=== PATIENT | female | born 1985 | race American Indian/Alaskan Native ===

== ENCOUNTER 2021-04-03 17:12 | Emergency (ER) | payer MEDICAID ==
[2021-04-03] MEDS ORDERED: ONDANSETRON 4 MG/2 ML INJ IV ONE (18:03)
[2021-04-03] MEDS ORDERED: MORPHINE 4 MG/1 ML INJ IV ONE (18:03)
[2021-04-03] MEDS ORDERED: KETOROLAC 30 MG/1 ML INJ IV ONE (18:03)
[2021-04-03] MEDS ORDERED: SODIUM CHLORIDE 0.9% 1000 ML 1,000 ML IV ONE (18:06)
--- NOTE | 2021-04-03 18:10 | Emergency Department Report ---
ED Abdominal Pain HPI - General Chief Complaint: Abdominal Pain Stated Complaint: RT SIDE PAIN PUI?: No Time Seen by Provider: 04/03/21 17:53 Source: patient Mode of arrival: Wheelchair Limitations: No Limitations - History of Present Illness Initial Comments: CC: "I hurt on my right side." HPI: This is a 35-year-old female with history of kidney stones who presents with right flank pain which began on yesterday shortly after eating Khmer food. Sharp 10 out of 10 pain. She had a brief evaluation at outside hospital last night. Due to prolonged wait, she left before treatment. She has had persistent right flank sharp pain in spite Percocet she took 5 hours ago. She has not urinated today. History of tubal ligation MD Complaint: flank pain -: Gradual, Last night Location: R flank Radiation: none Severity: severe Severity scale (0 -10): 10 Quality: sharp Consistency: constant Improves With: nothing Worsens With: nothing Associated Symptoms: nausea, vomiting - Related Data Previous Rx's Medication Instructions Recorded Last Taken Type Ibuprofen [Motrin 800 MG tab] 800 mg PO Q6H PRN #15 tablet 04/03/21 Unknown Rx Ondansetron [Zofran Odt] 4 mg PO Q8HR PRN #10 tab.rapdis 04/03/21 Unknown Rx Tamsulosin [Flomax] 0.4 mg PO QDAY 5 Days #5 cap 04/03/21 Unknown Rx oxyCODONE /ACETAMINOPHEN [Percocet 1 tab PO Q6HR PRN #10 tablet 04/03/21 Unknown Rx 5/325] Allergies Allergy/AdvReac Type Severity Reaction Status Date / Time nitrofurantoin Allergy Rash Verified 04/03/21 17:28 [From Macrobid] ED Review of Systems ROS: Stated complaint: RT SIDE PAIN Other details as noted in HPI Comment: All other systems reviewed and negative Constitutional: denies: fever, malaise Eyes: denies: as per HPI Respiratory: denies: cough, shortness of breath Gastrointestinal: abdominal pain, nausea, vomiting Genitourinary: denies: urgency, dysuria, frequency, hematuria ED Past Medical Hx - Past Medical History Previous Medical History?: Yes Hx Kidney Stones: Yes Additional medical history: Vaginal delivery x 5 - Surgical History Past Surgical History?: Yes Additional Surgical History: Tubaligation - Social History Smoking Status: Never Smoker Substance Use Type: Alcohol - Medications Home Medications: Home Medications Medication Instructions Recorded Confirmed Last Taken Type Ibuprofen [Motrin 800 MG tab] 800 mg PO Q6H PRN #15 tablet 04/03/21 Unknown Rx Ondansetron [Zofran Odt] 4 mg PO Q8HR PRN #10 tab.rapdis 04/03/21 Unknown Rx Tamsulosin [Flomax] 0.4 mg PO QDAY 5 Days #5 cap 04/03/21 Unknown Rx oxyCODONE /ACETAMINOPHEN [Percocet 1 tab PO Q6HR PRN #10 tablet 04/03/21 Unknown Rx 5/325] ED Physical Exam - General Limitations: No Limitations General appearance: alert, in no apparent distress - Head Head exam: Present: atraumatic, normocephalic - Eye Eye exam: Present: normal appearance - ENT ENT exam: Present: mucous membranes moist - Neck Neck exam: Present: normal inspection, full ROM - Respiratory Respiratory exam: Present: normal lung sounds bilaterally. Absent: respiratory distress, wheezes, rales, rhonchi - Cardiovascular Cardiovascular Exam: Present: regular rate, normal rhythm, normal heart sounds. Absent: systolic murmur, diastolic murmur, rubs, gallop - GI/Abdominal GI/Abdominal exam: Present: soft, normal bowel sounds. Absent: distended, t enderness, guarding, rebound - Extremities Exam Extremities exam: Present: normal inspection - Neurological Exam Neurological exam: Present: alert, oriented X3 - Psychiatric Psychiatric exam: Present: normal affect, normal mood - Skin Skin exam: Present: warm, dry, intact, normal color. Absent: rash ED Course Vital Signs 04/03/21 04/03/21 17:23 20:07 Temperature 98.7 F 97.7 F Pulse Rate 96 H 73 Respiratory 26 H 14 Rate Blood Pressure 132/85 Blood Pressure 131/79 [Left] O2 Sat by Pulse 100 100 Oximetry ED Medical Decision Making - Lab Data Result diagrams: 04/03/21 18:28 04/03/21 18:28 Laboratory Results - last 24 hr 04/03/21 04/03/21 04/03/21 18:28 18:28 19:58 WBC 12.4 H RBC 4.82 Hgb 13.2 Hct 39.8 MCV 83 MCH 27 L MCHC 33 RDW 16.0 H Plt Count 316 Lymph % (Auto) 19.1 Cass % (Auto) 9.5 H Eos % (Auto) 0.0 Baso % (Auto) 0.6 Lymph # (Auto) 2.4 Cass # (Auto) 1.2 H Eos # (Auto) 0.0 Baso # (Auto) 0.1 Seg Neutrophils % 70.8 H Seg Neutrophils # 8.8 H Sodium 138 Potassium 3.6 Chloride 102.3 Carbon Dioxide 18 L Anion Gap 21 BUN 10 Creatinine 0.7 Estimated GFR > 60 BUN/Creatinine Ratio 14 Glucose 89 Calcium 9.9 Total Bilirubin 0.40 AST 16 ALT 13 Alkaline Phosphatase 93 Total Protein 8.3 H Albumin 4.7 Albumin/Globulin Ratio 1.3 Lipase 11 L Urine Color Yellow Urine Turbidity Clear Urine pH 7.0 Ur Specific [place] 1.005 Urine Protein <15 mg/dl Urine Glucose (UA) Neg Urine Ketones 20 Urine Blood Lg Urine Nitrite Neg Ur Reducing Substances Urine Bilirubin Neg Urine Ictotest Urine Urobilinogen < 2.0 Ur Leukocyte Esterase Neg Urine WBC (Auto) 3.0 Urine RBC (Auto) 4.0 U Epithel Cells (Auto) 2.0 Urine Mucus Few 04/03/21 Unknown WBC RBC Hgb Hct MCV MCH MCHC RDW Plt Count Lymph % (Auto) Cass % (Auto) Eos % (Auto) Baso % (Auto) Lymph # (Auto) Cass # (Auto) Eos # (Auto) Baso # (Auto) Seg Neutrophils % Seg Neutrophils # Sodium Potassium Chloride Carbon Dioxide Anion Gap BUN Creatinine Estimated GFR BUN/Creatinine Ratio Glucose Calcium Total Bilirubin AST ALT Alkaline Phosphatase Total Protein Albumin Albumin/Globulin Ratio Lipase Urine Color Urine Turbidity Urine pH Ur Specific [place] Urine Protein Urine Glucose (UA) Urine Ketones Urine Blood Urine Nitrite Ur Reducing Substances Not Reportable Urine Bilirubin Urine Ictotest Not Reportable Urine Urobilinogen Ur Leukocyte Esterase Urine WBC (Auto) Urine RBC (Auto) U Epithel Cells (Auto) Urine Mucus - Radiology Data Radiology results: report reviewed Patient Name: THANH MULLINS Gender: Female Date of : 1985 Referring Provider: ROZ GARCIA Organization: [facility] Accession Number: [id number] Requested Date: April 03, 2021 18:02 Report Status: Final Requested Procedure: 1 Procedure Description: CT abdomen pelvis wo con Modality: CT Findings Reporting : Evgeny Rider Dictation Time: April 03, 2021 17:54 Mold Shaker: Not available Director Of [employer] Date: CT ABDOMEN AND PELVIS WITHOUT CONTRAST INDICATION / CLINICAL INFORMATION: Right flank pain history of kidney stone. TECHNIQUE: Axial CT images were obtained through the abdomen and pelvis without IV contrast. All CT scans at this location are performed using CT dose reduction for ALARA by means of automated exposure control. COMPARISON: None available. FINDINGS: LOWER CHEST: No significant abnormality. LIVER: No significant abnormality. GALLBLADDER: No significant abnormality. BILE DUCTS: No significant abnormality. PANCREAS: No significant abnormality. SPLEEN: No significant abnormality. ADRENALS: No significant abnormality. RIGHT KIDNEY / URETER: 3 mm stone at the right ureterovesical junction with mild hydroureteronephrosis. Right kidney is moderately enlarged and edematous with mild perinephric edema. Tiny punctate nonobstructing intrarenal stones. LEFT KIDNEY / URETER: No significant abnormality. STOMACH / SMALL BOWEL: No significant abnormality. COLON: No significant abnormality. APPENDIX: No significant abnormality. PERITONEUM: Trace free fluid in the pelvis which may be physiologic. No free air. No fluid collection. LYMPH NODES: No significant adenopathy. AORTA / ARTERIES: No significant abnormality. IVC / VEINS: No significant abnormality. URINARY BLADDER: No significant abnormality. REPRODUCTIVE ORGANS: No significant abnormality. ADDITIONAL FINDINGS: None. SKELETAL SYSTEM: No significant abnormality. IMPRESSION: 1. 3 mm stone at the right ureterovesical junction with mild hydroureteronephrosis. 2. Right nephrolithiasis. Signer Name: Evgeny Rider MD Signed: 04/03/2021 5:54 PM Workstation Name: [id number] - Medical Decision Making Clinical impression right-sided renal colic due to 3 mm stone at the right UVJ, no evidence of sepsis or infection patient received IV ketorolac, IV morphine IV Zofran, p.o. ibuprofen, p.o. Percocet, p.o. Flomax. Prescribed Percocet ibuprofen Zofran and Flomax. Referred to urologist. No fever, urinalysis is negative for infection, normal BUN normal creatinine, doubt equivocal elevation leukocytosis Critical care attestation.: If time is entered above; I have spent that time in minutes in the direct care of this critically ill patient, excluding procedure time. ED Disposition Clinical Impression: Renal colic on right side, Kidney stone on right side Disposition: 01 HOME / SELF CARE / HOMELESS Is pt being admited?: No Does the pt Need Aspirin: No Condition: Stable Instructions: Abdominal Pain (ED), Kidney Stones, [id number] Prescriptions: Tamsulosin [Flomax] 0.4 mg PO QDAY 5 Days #5 cap Ibuprofen [Motrin 800 MG tab] 800 mg PO Q6H PRN #15 tablet PRN Reason: Pain , Severe (7-10) oxyCODONE /ACETAMINOPHEN [Percocet 5/325] 1 tab PO Q6HR PRN #10 tablet PRN Reason: Pain Ondansetron [Zofran Odt] 4 mg PO Q8HR PRN #10 tab.rapdis PRN Reason: Nausea Referrals: ELIER YATES MD [Staff Physician] - as needed
[2021-04-03 18:55] LABS: Basophils # (Auto) 0.1 K/mm3 (0.0-0.1); Basophils % (Auto) 0.6 % (0.0-1.8); Hematocrit 39.8 % (30.3-42.9); Hemoglobin 13.2 gm/dl (10.1-14.3); Lymphocytes # (Auto) 2.4 K/mm3 (1.2-5.4); Lymphocytes % (Auto) 19.1 % (13.4-35.0); Mean Corpuscular HGB Conc 33 % (30-34); Mean Corpuscular Volume 83 fl (79-97); Monocytes # (Auto) 1.2 K/mm3 (0.0-0.8); Monocytes % (Auto) 9.5 % (0.0-7.3); Platelet Count 316 K/mm3 (140-440); Red Blood Count 4.82 M/mm3 (3.65-5.03)
--- NOTE | 2021-04-03 18:59 | Cat Scan Report ---
CT ABDOMEN AND PELVIS WITHOUT CONTRAST INDICATION / CLINICAL INFORMATION: Right flank pain history of kidney stone. TECHNIQUE: Axial CT images were obtained through the abdomen and pelvis without IV contrast. All CT scans at this location are performed using CT dose reduction for ALARA by means of automated exposure control. COMPARISON: None available. FINDINGS: LOWER CHEST: No significant abnormality. LIVER: No significant abnormality. GALLBLADDER: No significant abnormality. BILE DUCTS: No significant abnormality. PANCREAS: No significant abnormality. SPLEEN: No significant abnormality. ADRENALS: No significant abnormality. RIGHT KIDNEY / URETER: 3 mm stone at the right ureterovesical junction with mild hydroureteronephrosi s. Right kidney is moderately enlarged and edematous with mild perinephric edema. Tiny punctate nonob structing intrarenal stones. LEFT KIDNEY / URETER: No significant abnormality. STOMACH / SMALL BOWEL: No significant abnormality. COLON: No significant abnormality. APPENDIX: No significant abnormality. PERITONEUM: Trace free fluid in the pelvis which may be physiologic. No free air. No fluid collection . LYMPH NODES: No significant adenopathy. AORTA / ARTERIES: No significant abnormality. IVC / VEINS: No significant abnormality. URINARY BLADDER: No significant abnormality. REPRODUCTIVE ORGANS: No significant abnormality. ADDITIONAL FINDINGS: None. SKELETAL SYSTEM: No significant abnormality. IMPRESSION: 1. 3 mm stone at the right ureterovesical junction with mild hydroureteronephrosis. 2. Right nephrolithiasis. Signer Name: Evgeny Rider MD Signed: 04/03/2021 6:54 PM Workstation Name: [id number]
[2021-04-03 19:39] LABS: Alanine Aminotransferase 13 units/L (7-56); Albumin 4.7 g/dL (3.9-5); Blood Urea Nitrogen 10 mg/dL (7-17); Calcium 9.9 mg/dL (8.4-10.2); Hemolysis Index 14
[2021-04-03 19:44] LABS: BUN/Creatinine Ratio 14
[2021-04-03 19:49] LABS: Bilirubin,Urine NEG (Negative); Blood,Urine LG (Negative); Color,Urine Yellow (Yellow); Mucus,Urine FEW /HPF; Protein,Urine <15 mg/dL mg/dL (Negative); Urobilinogen,Urine < 2.0 mg/dL (<2.0)
[2021-04-03] MEDS ORDERED: oxyCODONE /ACETAMINOPHEN 5-325MG TAB PO ONE (20:27)
[2021-04-03] MEDS ORDERED: TAMSULOSIN 0.4 MG CAP PO ONE (20:27)
[2021-04-03] MEDS ORDERED: IBUPROFEN 800 MG TAB PO ONE (20:27)
[2021-04-03 21:38] VITALS: BP 126/73
== END 2021-04-03 21:38 | disposition home or self-care (01) ==
LOC: ED 17:12
DX: N23 Unspecified renal colic (principal); Z87.442 Personal history of urinary calculi; Z98.890 Other specified postprocedural states; Z88.1 Allergy status to other antibiotic agents
CPT/HCPCS: 36415; 74176; 80053; 81001; 83690; 85025; 96361; 96374; 96375; 99284; J1885; J2270; J2405; J7030